=== PATIENT | male | born 1945 | race Caucasian/White ===

== ENCOUNTER → 2016-09-19 | Outpatient (CLI) | payer OTHER ==
[~2016-09-19] MED LIST: ALLO300T2 PO; ATOR-26 PO; CLOP1TAB15 PO; DIPH25TA24 PO; ELQ25 PO; GABA-113 PO; LSNUNK; MULT-506 PO; NITR0.4S UT; OMEG-13 PO; PRAV20TA PO; TRIA37.5 PO; [UNRECOGNIZED DRUG - OTHER]; [UNRECOGNIZED DRUG - OTHER]
[2016-09-19 09:31] LABS: HEMATOCRIT 42.8 % (42-52); MEAN CELL VOLUME 88.6 fL (80-100); MEAN CORPUSCULAR HGB CONC 33.9 g/dl (32-36); MEAN PLATELET VOLUME 11.1 fL (7.4-10.4); PLATELET COUNT 129 K/uL (130-400); RED BLOOD COUNT 4.83 M/uL (4.7-6.1); WHITE BLOOD COUNT 5.25 K/uL (4.8-10.8)
[2016-09-19 09:48] LABS: AST/SGOT 19 U/L (15-37); BLOOD UREA NITROGEN 20 mg/dl (7-18); BUN/CREATININE RATIO 16.3 (10-20); CALCIUM 8.5 mg/dl (8.5-10.1); CARBON DIOXIDE 29 mmol/L (21-32); CHLORIDE 108 mmol/L (98-107); CHOLESTEROL 107 mg/dl (0-200); GLUCOSE 95 mg/dl (70-99); POTASSIUM 3.9 mmol/L (3.5-5.1); SODIUM 144 mmol/L (136-145)
[2016-09-19 09:53] LABS: ALB/GLOB RATIO 1.9 (0.9-2); ALKALINE PHOSPHATASE 114 U/L (45-117); ALT/SGPT 29 U/L (12-78); CHOLESTEROL/HDL RATIO 3.3; HDL CHOLESTEROL 32 mg/dl; LDL CHOLESTEROL CALCULATED 53 mg/dl; TRIGLYCERIDES 110 mg/dl (0-150); VERY LOW DENSITY LIPOPROT CALC 22 mg/dl
[2016-09-19 10:05] LABS: ESTIMATED AVERAGE GLUCOSE 108 mg/dl; HA1C FLAG Normal (Normal)
--- NOTE | 2016-09-24 08:35 | CODING QUERY MEDICAL NECESSITY ---
SUPPORTING DIAGNOSIS NEEDED A supporting diagnosis is required for the test/procedure performed on this patient in order for us to be reimbursed by the patient's insurance. Please provide a supporting diagnosis for the following test/procedure listed below next to the test name along with your signature. *If there is no additional diagnosis for this patient that would support the following test/procedure please document that below next to the test/procedure. Test(s)/Procedure(s) that require a supporting diagnosis: * GLYCATED HEMOGLOBIN DIAGNOSIS: * DOS: 09/19/16 Provider Signature: Date: Thank you Gely Oconnor Health Information Management Once completed, please kindly fax back to [phone] For questions please call [phone]
== END | disposition home or self-care (01) ==
LOC: C.LAB1850 07:24
PROVIDERS: ATTEND Internal Medicine Cardiovascular Disease
DX: I10 Essential (primary) hypertension (principal); R73.09 Other abnormal glucose

== ENCOUNTER → 2017-03-18 | Outpatient (CLI) | payer OTHER ==
[2017-03-18 10:01] LABS: ALT/SGPT 28 U/L (12-78); BLOOD UREA NITROGEN 19 mg/dl (7-18); BUN/CREATININE RATIO 19.2 (10-20); CALCIUM 8.7 mg/dl (8.5-10.1); CARBON DIOXIDE 29 mmol/L (21-32); CHLORIDE 108 mmol/L (98-107); GLUCOSE 93 mg/dl (70-99); POTASSIUM 3.3 mmol/L (3.5-5.1); SODIUM 142 mmol/L (136-145)
[2017-03-18 10:09] LABS: HEMATOCRIT 42.9 % (42-52); MEAN CELL VOLUME 86.8 fL (80-100); MEAN CORPUSCULAR HEMOGLOBIN 29.6 pg (25-34); PLATELET COUNT 135 K/uL (130-400); PLT ESTIMATE DECREASED; RED BLOOD COUNT 4.94 M/uL (4.7-6.1); WHITE BLOOD COUNT 4.65 K/uL (4.8-10.8)
[2017-03-18 10:11] LABS: ALB/GLOB RATIO 1.7 (0.9-2); ALKALINE PHOSPHATASE 113 U/L (45-117); AST/SGOT 23 U/L (15-37)
== END | disposition home or self-care (01) ==
LOC: C.LAB1850 07:55
PROVIDERS: ATTEND Internal Medicine Cardiovascular Disease
DX: I25.10 Atherosclerotic heart disease of native coronary artery without angina pectoris (principal); E78.5 Hyperlipidemia, unspecified; R06.09 Other forms of dyspnea; I48.0 Paroxysmal atrial fibrillation; I42.9 Cardiomyopathy, unspecified

== ENCOUNTER 2019-02-09 11:33 | Observation (INO) ==
[~2019-02-09 11:33] MED LIST changes: -ALLO300T2 PO; -ATOR-26 PO; +CEFAZOLIN 1000MG 1,000 MG/7.5 ML SYR IV SCH; -CLOP1TAB15 PO; -DIPH25TA24 PO; -ELQ25 PO; -GABA-113 PO; +LR 15ML/HR IV SCH; -LSNUNK; -MULT-506 PO; -NITR0.4S UT; -OMEG-13 PO; -PRAV20TA PO; -TRIA37.5 PO; -[UNRECOGNIZED DRUG - OTHER]; -[UNRECOGNIZED DRUG - OTHER]
[2019-02-09] MEDS ORDERED: LIDOCAINE HCL 1% 20 ML VIAL ONE (12:18)
[2019-02-09] MEDS ORDERED: BACITRACIN OINT 0.9 GM PKT ONE (12:18)
[2019-02-09] MEDS ORDERED: BACITRACIN INJ 50,000 UNIT VIAL ONE (12:18)
--- NOTE | 2019-02-09 14:02 | History & Physical Bridge Note ---
Date of Service February 09, 2019 History & Physical Bridge Note I have examined the patient, reviewed the History & Physical and in the interval since the performance of the History & Physical I have noted the following changes of clinical significance: no changes noted. I reviewed the indications, procedure, risks and alternatives of upgrade to biventricular ICD with the patient and he understands and agrees to proceed. Consent obtained. I also discussed conscious sedation with him and he agrees. Consent obtained.
--- NOTE | 2019-02-09 14:04 | Pre Anesthesia Assessment ---
Date of Service February 09, 2019 Pre Sedation Assessment Vital Signs Temp Pulse Resp BP Pulse Ox 02/09/19 12:27 37.2 C 85 20 122/66 98 Cardiovascular RRR, no murmur, no edema Respiratory normal respiratory effort, lungs clear to auscultation Pre-Sedation Airway Assessment Smoking Status: Never smoker Hx Sleep Apnea: No Hx Difficult Intubation: No Short, Thick Neck: No Thyromental Distance: > or= 3.5 Finger Breadths Mallampati Class: II ASA III NPO Status Date of Last Intake of Fluids: 02/08/19 Date of Last Intake of Solid Food: 02/08/19 Procedure Planning Contraindications for Sedation: none Current Medications Reviewed: Yes Notes The planned sedation has been discussed with the patient. Informed Consent was obtained. I have identified the patient, determined the appropriateness of sedation and have assessed the patient immediately prior to the procedure. All medicine(s) and interventions are by my order.
[2019-02-09] MEDS ORDERED: MIDAZOLAM HCL 5 MG/ML 1 ML VIAL ONE (14:11)
[2019-02-09] MEDS ORDERED: fentaNYL citrate 100 MCG/2 ML VIAL ONE (14:11)
[2019-02-09] MEDS ORDERED: ACETAMINOPHEN 325 MG TAB PO PRN (16:38)
[2019-02-09] MEDS ORDERED: KETOROLAC TROMETHAMINE 10 MG TABLET PO PRN (16:38)
--- NOTE | 2019-02-09 16:38 | Operative Report ---
Post Operative Report Pre & Post Diagnosis Operation Date: 02/09/19 13:00 Preoperative diagnosis: ICD at SEE, left bundle branch block (paced), complete heart block, cardiomyopathy Postoperative diagnosis: Same Procedure Operation Date: 02/09/19 13:00 Actual Procedures p ICD Gen Change Multiple - Joesph Kaiser MD Left ventricular lead implant- Joesph Kaiser MD Left subclavian venogram Coronary sinus angiogram Surgeon Joesph Kaiser MD Adult Family Home Program Manager None Estimated Blood Loss 30 Findings Consistent with Post-Op Diagnosis Left subclavian vein was open on venography, however tortuous and difficult to access and passed a lead through but it was successful. Chronic atrial and ventricular lead measurements were excellent and those leads were used Specimens Old ICD, return to [employer] Anesthesia Type Local Complications none Disposition Accompanied Patient To Recovery: No Disposition: PCU Description of Procedure After obtaining informed consent for the procedure, the patient was brought to the laboratory being NPO after midnight. After identification in the laboratory dye was injected the left arm IV site to opacify the left subclavian vein. The subclavian vein was identified and found to be free of obstruction. The patient was prepped and draped in the standard sterile manner. Left subclavian venipuncture was performed by percutaneous technique with some difficulty but no complications, a guidewire was placed through the left subclavian vein into the right atrium but it was tortuous and several wires were required. Ultimately however good access to the right atrium was obtained. A [place] coronary sinus sheath was advanced over the guidewire into the right atrium, loss of the coronary sinus was identified with dye injection. A guidewire was placed into the coronary sinus and a guiding catheter placed into the coronary sinus. Dye was injected through the guiding sheath to opacify the coronary sinus. A good branch was identified and a whisper CS J-wire was advanced into this vessel. A quadripolar coronary sinus lead was advanced over the wire into good distal position. Measurements were obtained and are identified on the data sheet. Diaphragmatic pacing was evaluated. The lead was then attached to the anterior pectoral fascia using 2 sutures of 2-0 silk around the lead collar. The left prepectoral region was anesthetized with 1% lidocaine local anesthetic and the incision was extended along the old implant scar and carried down to the ICD generator. The generator was dissected free of tissue and explanted. A bacitracin-soaked sponge (50,000 units in 50 cc normal saline solution) was placed in the pocket. The ICD was removed from the leads and connected to an external pacing system. Pacing and sensing characteristics were evaluated in both the atrial and ventricular leads as noted on the implant data sheet. A new ICD was attached to the chronic atrial and ventricular leads and the new left ventricular lead and found to be functioning normally. The bacitracin-soaked sponge was removed from the pocket, the ICD was placed in the pocket with the leads coiled beneath it and encased in a Tyrex pouch. The incision was closed with a running double subcutaneous closure of 3-0 Vicryl absorbable suture followed by a running subcuticular skin closure of 4-0 Vicryl absorbable suture. I attest to the content of the Intraoperative Record and any orders documented therein. Any exceptions are noted below.
[2019-02-09] MEDS ORDERED: NITROGLYCERIN SL 0.4 MG/TAB TAB SL PRN (16:40)
--- NOTE | 2019-02-09 16:44 | Post Anesthesia Assessment ---
Date of Service February 09, 2019 Post Sedation Assessment Vital Signs Temp Pulse Resp BP Pulse Ox 02/09/19 12:27 37.2 C 85 20 122/66 98 Recovery Score Activity: Moves 4 extremities Respiration: Deep Breath/Cough Circulation: +/-20% PreAnes Value Consciousness: Fully Awake Oxygen Saturation: > 92% On Room Air Discharge Sedation Level of Care: Fast Track Phase II Post Sedation Plan On clinical assessment, the patient appears to have tolerated the sedation without complications. Patient is recovering as anticipated. Patient will continue to be monitored by nursing and may be discharged when sedation discharge criteria are met per below protocol. Upon Completions of procedure and additional 15 minutes continue every 5 minute vital signs and the P.A.R. score; then discharge to a Phase I or Fast Track to Phase II per the following guidelines: * Discharge Patient to appropriate Phase II area if PAR is 8 or greater or return to pre- procedure baseline. The post - procedure orders will be as directed. * If PAR score is less than 8 or not return to pre-procedure baseline then patient will follow Phase I monitoring till PAR is reached for Phase II. The Phase I may be done in procedure room or may call to secure a Phase I area. * If naloxone or flumazenil are used for reversal, hold in Phase I for continued monitoring from when last reversal dose was given for a minimum of 60 minutes or longer pending the nurse and/or physician discretion of patient condition before discharge to Phase II. Please call the Sedation Physician to re-evaluate and complete post-note for discharge to Phase II area. Do NOT discharge from procedure sedation or Phase 1 until post- sedation evaluation note is complete by procedure /sedation MD Sedation Discharge Instructions to be given to the patient at discharge to home.
[2019-02-09] MEDS: CARVEDILOL 12.5 MG TAB PO SCH (19:52)
[2019-02-09] MEDS: GABAPENTIN 400 MG CAP PO SCH (19:52)
--- NOTE | 2019-02-10 07:52 | XRay Report ---
XR chest 2V routine CLINICAL HISTORY: Pacemaker insertion. COMPARISON STUDY: Chest radiograph August 23, 2009. FINDINGS: Interval placement of a left subclavian pacer is noted. Preexisting leads are noted. A lead now extends through the coronary sinus. Note is made of moderate cardiomegaly without evidence for p ulmonary edema. There is no pneumothorax or pleural effusion. There is suspected underlying emphysema . Nodular densities projecting over the lower lungs likely reflect nipple shadows. IMPRESSION: No pneumothorax following placement of a left subclavian pacer. Electronically signed by: Davide Grant M.D. 02/10/2019 7:51 AM
[2019-02-10] MEDS: CARVEDILOL 12.5 MG TAB PO SCH (08:15)
[2019-02-10] MEDS: GABAPENTIN 400 MG CAP PO SCH (08:16)
[2019-02-10] MEDS ORDERED: ATORVASTATIN 40 MG TAB PO SCH (09:00)
[2019-02-10] MEDS ORDERED: CLOPIDOGREL BISULFATE 75 MG TAB PO SCH (09:00)
[2019-02-10] MEDS ORDERED: ISOSORBIDE MONO EXTENDED REL 60 MG TABCR PO SCH (09:00)
[2019-02-10] MEDS ORDERED: TRIAMTERENE/HCTZ 37.5/25MG CAP PO SCH (09:00)
[2019-02-10] MEDS ORDERED: ALLOPURINOL 300 MG TAB PO SCH (09:00)
[2019-02-10] MEDS ORDERED: LISINOPRIL 10 MG TAB PO SCH (09:00)
[2019-02-10] MEDS ORDERED: MULTIVITAMIN TAB PO SCH (09:00)
--- NOTE | 2019-02-10 09:12 | Cardiology Progress Note ---
Date of Service February 10, 2019 Assessment & Plan (1) History of implantable cardioverter-defibrillator (ICD) placement: He is doing very well post ICD upgrade, the electric cardiogram looks good, the lead is in good position and the x-ray looks good. He is stable for discharge. I have arranged follow-up in 2 days. Subjective He reports an occasional twitching sensation, once when he is going down x-ray and occasional other times. This sounds like diaphragmatic stimulation Patient feels well today, no significant incisional discomfort, no shortness of breath or chest discomfort. He has been up and out of bed and felt well doing that. Physical Exam Physical Exam: Surgical site looks clean and dry, there may be minimal swelling at the ICD site but no significant ecchymosis and no drainage. The dressing was dry and was changed. Results & Data Vital Signs (Past 12 Hours) Vital Signs Temp Pulse Pulse Resp BP BP Pulse Ox 02/10/19 08:13 36.7 C 78 19 95/61 L 97 02/10/19 03:25 36.7 C 67 19 94/58 L 99 02/10/19 00:33 70 02/09/19 23:42 37.0 C 75 19 89/53 L 98 02/09/19 22:00 80 20 113/56 L 98 02/09/19 21:30 88 20 114/77 98 02/09/19 21:00 89 20 108/70 94 Diagnostic Findings Electrocardiogram: Appropriate biventricular pacing this morning, the QRS has narrowed nicely to 128 ms duration. Telemetry: Appropriate ICD function, pacing Pacemaker evaluation: Excellent pacing and sensing characteristics. Left ventricular pacing output dropped to minimize diaphragmatic pacing. Chest x-ray: Good lead position, no pneumothorax
--- NOTE | 2019-02-15 08:31 | Discharge Summary ---
Date of Service February 15, 2019 Admission HPI Per Admitting Provider This is a 73-year-old male with a history of coronary artery disease, prior myocardial infarction, ischemic cardiomyopathy. He had a dual-chamber ICD implanted February 19, 2008, with replacement on December 17, 2012. He has been on appropriate medical therapy and his left ventricular ejection fraction has remained less than 35%. An echocardiogram done July 03, 2018 shows a left ventricular ejection fraction of 20 to 25%. He also has had progressive dyspnea on exertion. His device has reached replacement time and we will therefore upgrade the device to a biventricular unit by placing a left ventricular lead and using the chronic atrial and right ventricular leads if possible. Admission Exam (Per Admitting) Constitutional WD/WN, vitals as above ENMT Mallampati Class: II Respiratory normal respiratory effort, lungs clear to auscultation Cardiovascular RRR, no murmur, no edema Gastrointestinal (Abdomen) normal bowel sounds, soft, nontender, no hepatosplenomegaly Neurologic Grossly unremarkable Discharge Data Procedures Performed Operation Date: 02/09/19 13:00 Actual Procedures p Upgrade of any system to BIV - Joesph Kaiser MD s Venogram, Unilateral - Joesph Kaiser MD Hospital Course (1) History of implantable cardioverter-defibrillator (ICD) placement: Although access was somewhat difficult and the venogram was required, the left subclavian vein was patent and with a little bit of difficulty a guidewire was passed into the right atrium and a lead successfully implanted in good position in a branch of the coronary sinus. He was doing very well post ICD upgrade, the electrocardiogram looked good with significant QRS narrowing, the lead was in good position and the x-ray looked good. He was stable for discharge. I arranged follow-up in 2 days.
== END 2019-02-10 10:00 | disposition home or self-care (01) ==
LOC: 2S 11:33 → EP 11:33

== ENCOUNTER 2020-01-27 14:58 | Inpatient (IN) ==
[2020-01-27] MEDS ORDERED: ASPIRIN CHEW 324 MG PO STA (15:10)
[2020-01-27] MEDS ORDERED: LORazepam 0.5 MG/1 ML VIAL IV STA (15:26)
--- NOTE | 2020-01-27 15:33 | Emergency Department Note ---
History of Present Illness General Chief Complaint: Cardiac Assessment Stated Complaint: CARDIAC ASSESSMENT, REF'D BY WALLY Time Seen by Provider: 01/27/20 15:07 History of Present Illness Provider Complaint: chest pain Onset (ago): hour(s) 2 (2.5) Time: 13:00 Duration: now resolved Pain Location: substernal Pain Radiation: none Current Pain Intensity: 0 Quality: + other (Pressure) Relieved By: + other (Defibrillator going off) Exacerbated By: + nothing Context: no recent illness, no recent surgery, no recent immobilization, no recent travel, no trauma/injury and no history of DVT/PE Associated symptoms: + syncope; no nausea, no vomiting, no diaphoresis, no dyspnea, no sense of impending doom, no palpitations, no fever, no cough and no leg swelling 74-year-old male with a history of coronary artery disease, LAD stent, left circumflex stent, ischemic cardiomyopathy, Medtronic cardioverter/defibrillator, hypertension, dyslipidemia, proximal atrial fibrillation, and paroxysmal V. tach presents emergency department after his defibrillator went off. Patient reports that his defibrillator went off 3 times last 5 days. He states last time he went off was 1 PM today. He states he feels chest pressure before the defibrillator goes off. He states today at 1 PM he began feeling chest pressure, passed out and then the defibrillator went off. He denies any difficulty breathing. He denies any hemoptysis. Patient states he is a patient of [facility] cardiology. Home Medications Home Medications Medication Instructions Recorded Confirmed Type atorvastatin 80 mg tablet 80 mg PO DAILY 01/06/19 01/27/20 History diphenhydramine HCl 25 mg capsule 25 mg PO DAILY PRN cap 01/06/19 01/27/20 History multivitamin 1 tab PO DAILY 01/06/19 01/27/20 History aspirin 81 mg tablet,delayed 81 mg PO DAILY #30 tab 02/24/19 01/27/20 History release potassium chloride 10 mEq 10 meq PO DAILY #90 tab 02/24/19 01/27/20 History tablet,extended release carvedilol 25 mg tablet 25 mg PO BID #60 tab 03/30/19 01/27/20 Rx allopurinol 300 mg tablet 300 mg PO DAILY #30 tab 04/09/19 01/27/20 Rx clopidogrel 75 mg tablet 75 mg PO DAILY #30 tab 04/09/19 01/27/20 Rx isosorbide mononitrate 60 mg 60 mg PO QAM #30 tab 04/09/19 01/27/20 Rx tablet,extended release 24 hr nitroglycerin 0.4 mg sublingual 0.4 mg SL Q5M PRN #25 tab 05/03/19 01/27/20 Rx tablet digoxin 125 mcg (0.125 mg) tablet 125 mcg PO DAILY #90 tab 05/10/19 01/27/20 Rx lisinopril 10 mg tablet 10 mg PO DAILY #90 tab 07/06/19 01/27/20 Rx apixaban 5 mg tablet 5 mg PO BID #60 tab 09/06/19 01/27/20 Rx triamterene 37.5 1 cap PO DAILY #90 cap 10/04/19 01/27/20 Rx mg-hydrochlorothiazide 25 mg capsule gabapentin 400 mg capsule 400 mg PO TID #90 cap 11/17/19 01/27/20 Rx Allergies Allergy/AdvReac Type Severity Reaction Status Date / Time Tetracyclines Allergy Severe Rash; Verified 01/27/20 15:29 Itching Past Med/Surg History Medical History Abnormal CT scan, kidney (Inactive) Atrial fibrillation Chronic anticoagulation (Inactive) Coronary artery disease Dyslipidemia Hematochezia History of myocardial infarction Hypertension ICD (implantable cardioverter-defibrillator) in place (Inactive) Lumbar radiculopathy (Chronic) Pacemaker Palpitation Paroxysmal ventricular tachycardia (Inactive) Surgical History History of coronary artery stent placement History of implantable cardioverter-defibrillator (ICD) placement History of tonsillectomy and adenoidectomy Family History Mother Diabetes Denies family history of Ovarian cancer Prostate cancer Myocardial infarction Breast cancer Colorectal cancer Social History Preferred Language: Thai Communication Ability: Effective Visual Impairment: Limited Hearing Ability: Normal 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 Beliefs That Will Affect Care: None marital status: Current Living Situation: Alone current occupational status: retired Feels Safe at Home: Yes Smoking Status: Unknown if ever smoked Hx Alcohol Use: No Hx Substance Use: No Childhood Exposure to Second-Hand Smoke: No Dental Care, Regularly: No Physical Activity Frequency: Does not Exercise Seatbelt Use: always Sunscreen Use: No Review of Systems A total of 10 systems reviewed and were otherwise negative Physical Exam Vital Signs Vital Signs - 24 hr 01/27/20 15:01 01/27/20 15:24 01/27/20 15:25 Temperature 37.0 C Temperature Source Oral Pulse Rate 84 70 Pulse Rate from SpO2 Sensor 70 Respiratory Rate 20 24 Respiratory Effort / Characteristics Non-Labored Spontaneous Respiratory Depth Normal Respiratory Pattern Regular Blood Pressure 120/71 120/68 Blood Pressure Mean 87 79 Pulse Oximetry 97 97 98 Oxygen Delivery Method Room Air Room Air Room Air Sepsis Recent Fever Within 48 Hours No Sepsis Action Taken by Nursing No Action Required 01/27/20 15:29 01/27/20 15:30 01/27/20 16:00 Temperature Temperature Source Pulse Rate 71 70 74 Pulse Rate from SpO2 Sensor 71 70 74 Respiratory Rate 15 16 24 Respiratory Effort / Characteristics Respiratory Depth Respiratory Pattern Blood Pressure 118/66 Blood Pressure Mean 81 Pulse Oximetry 96 95 93 Oxygen Delivery Method Room Air Room Air Sepsis Recent Fever Within 48 Hours Sepsis Action Taken by Nursing 01/27/20 16:01 01/27/20 16:02 01/27/20 16:30 Temperature Temperature Source Pulse Rate 71 88 71 Pulse Rate from SpO2 Sensor 70 88 70 Respiratory Rate 24 24 20 Respiratory Effort / Characteristics Respiratory Depth Respiratory Pattern Blood Pressure 119/65 117/65 Blood Pressure Mean 89 89 Pulse Oximetry 94 93 97 Oxygen Delivery Method Room Air Room Air Sepsis Recent Fever Within 48 Hours Sepsis Action Taken by Nursing 01/27/20 17:00 01/27/20 17:01 01/27/20 17:02 Temperature Temperature Source Pulse Rate 72 71 70 Pulse Rate from SpO2 Sensor Respiratory Rate 20 18 17 Respiratory Effort / Characteristics Respiratory Depth Respiratory Pattern Blood Pressure 131/58 L Blood Pressure Mean 98 Pulse Oximetry 98 97 Oxygen Delivery Method Room Air Room Air Sepsis Recent Fever Within 48 Hours Sepsis Action Taken by Nursing 01/27/20 17:30 Temperature Temperature Source Pulse Rate 71 Pulse Rate from SpO2 Sensor Respiratory Rate 17 Respiratory Effort / Characteristics Respiratory Depth Respiratory Pattern Blood Pressure 125/69 Blood Pressure Mean 103 Pulse Oximetry 97 Oxygen Delivery Method Room Air Sepsis Recent Fever Within 48 Hours Sepsis Action Taken by Nursing Physical Exam GENERAL: He is oriented to person, place, and time. He appears well-developed and well-nourished. He does not appear distressed. HENT: Exam performed. - Head: Normocephalic and atraumatic. - Right Ear: External ear normal. No mastoid tenderness. - Left Ear: External ear normal. No mastoid tenderness. - Mouth/Throat: The oropharynx is clear and moist. No trismus in the jaw. No dental abscesses or uvula swelling. No oropharyngeal exudate or tonsillar abscesses. EYES: Conjunctivae and EOM are normal. Pupils are equal, round, and reactive to light. Right eye exhibits no discharge. Left eye exhibits no discharge. No scleral icterus. NECK: Normal range of motion. Neck supple. No JVD present. No spinous process tenderness present. No carotid bruit present. No rigidity. No tracheal deviation and normal range of motion present. No Brudzinski's sign and no Kernig's sign noted. CV: Normal rate, regular rhythm, normal heart sounds and intact distal pulses. There is no peripheral edema. Palpable radial pulses bue. PULM/CHEST: Effort normal and breath sounds normal. No respiratory distress. No stridor. He has no wheezes. He has no rales. - Chest Wall: He exhibits no tenderness. ABD: The abdomen is soft. Bowel sounds are normal. He has no distension. No mass is present. There is no tenderness. There is no rebound, no guarding, no Dozier's sign and no tenderness at McBurney's point. Rovsig negative. MUSC/SKEL: Normal range of motion. There is no peripheral edema, tenderness or deformity. LYMPH: No cervical adenopathy. NEURO: He is alert and oriented to person, place, and time. He has normal strength. No cranial nerve deficit or sensory deficit. Coordination and gait normal. GCS eye subscore is 4. GCS verbal subscore is 5. GCS motor subscore is 6. Cerebellar tests wnl. SKIN: Skin is warm and dry. He is not diaphoretic. PSYCH: He has a normal mood and affect. Behavior is normal. Judgment and thought content normal. Course Course 1515: The patient was evaluated in room B2. A complete history and physical exam was performed. Cardiac monitoring: An order was placed for continuous cardiac monitoring. The monitor shows a rate of 80 with paced rhythm 1536: Received a call from Braden from [employer]. The patient did have his defibrillator go off once at 1303 due to V. tach. 1647: Vital signs stable. Labs within normal limits with exception of elevated troponin. I discussed the patient's case with Dr. Borges [facility] cardiology who states to start the patient on amiodarone 400 mg twice daily and to admit him to the hospital service where he will see him. Discussed with Dr. Fields [facility] hospitalist who accepted the admission. Administered Medications Apixaban (Eliquis) 5 mg PO BID BLANCO Stop: 02/26/20 20:59 Last Admin: 01/27/20 21:42 Dose: 5 mg Documented by: [id number] Carvedilol (Coreg) 25 mg PO BID BLANCO Stop: 02/26/20 20:59 Last Admin: 01/27/20 21:42 Dose: 25 mg Documented by: [id number] Gabapentin (Neurontin) 400 mg PO TID BLANCO Stop: 02/26/20 20:59 Last Admin: 01/27/20 21:42 Dose: 400 mg Documented by: [id number] Discontinued Medications Amiodarone HCl (Cordarone) 400 mg PO NOW ONE Stop: 01/27/20 16:45 Last Admin: 01/27/20 16:54 Dose: 400 mg Documented by: [id number] Aspirin (Aspirin) 324 mg PO NOW STA Stop: 01/27/20 15:11 Last Admin: 01/27/20 15:25 Dose: 324 mg Documented by: [id number] Lorazepam (Ativan) 0.5 mg in 1 mls @ 1 mls/min IV NOW STA Stop: 01/27/20 15:27 Last Admin: 01/27/20 15:32 Dose: 1 mls/min Documented by: [id number] Medical Decision Making Laboratory Data Result diagrams: 01/27/20 15:20 01/27/20 15:20 Labs: Lab Results 01/27/20 01/27/20 01/27/20 Range/Units 15:20 15:20 15:20 WBC 4.94 (4.8-10.8) K/uL RBC 4.40 L (4.7-6.1) M/uL Hgb 13.4 L (14.0-18.0) g/dL Hct 40.4 L (42-52) % MCV 91.8 (80-100) fL MCH 30.5 (25-34) pg MCHC 33.2 (32-36) g/dL RDW Std Deviation 49.7 H (36.4-46.3) fL RDW Coeff of Phill 14.8 H (11.5-14.5) % Plt Count 165 (130-400) K/uL MPV 10.1 (7.4-10.4) fL Immature Gran % (Auto) 0.0 % Neut % (Auto) 73.5 % Lymph % (Auto) 18.4 % [place] % (Auto) 8.1 % Eos % (Auto) 0.0 % Baso % (Auto) 0.0 % Neut # (Auto) 3.63 (1.4-6.5) K/uL Lymph # (Auto) 0.91 L (1.2-3.4) K/uL [place] # (Auto) 0.40 (0.11-0.59) K/uL Eos # (Auto) 0.00 (0-0.5) K/uL Baso # (Auto) 0.00 (0-0.2) K/uL Immature Gran # (Auto) 0.00 (0.00-0.02) K/uL PT 11.4 (9.0-12.0) Seconds INR 1.1 (0.9-1.1) APTT 31.0 (21.0-31.0) Seconds PTT Ratio 1.1 Sodium 142 (136-145) mmol/L Potassium 4.0 (3.5-5.1) mmol/L Chloride 110 H (98-107) mmol/L Carbon Dioxide 30 (21-32) mmol/L Anion Gap 2.0 L (3-11) BUN 22 H (7-18) mg/dl Creatinine 1.29 (0.6-1.4) mg/dl Est Cr Clr Drug Dosing 47.7 ml/min Est GFR ( Amer) 63.3 Est GFR (Non-Af Amer) 54.6 BUN/Creatinine Ratio 16.9 (10-20) Glucose 119 H (70-99) mg/dl Calcium 8.6 (8.5-10.1) mg/dl Magnesium 2.0 (1.8-2.4) mg/dl Troponin I 0.069 H* (0-0.045) ng/ml Lipase 106 (73-393) U/L Imaging Data Chest x-ray: Radiologist's impression: XR chest 2V PA/lateral CLINICAL HISTORY: Atypical chest pain COMPARISON STUDY: 02/10/2019 FINDINGS: The heart is borderline enlarged. There is a left subclavian pacer/defibrillator present. There is no failure. There is no focal pulmonary consolidation. There are no pleural effusions. There is a linear band of subsegmental atelectasis/scarring at the left lung base laterally. Bilateral nipple shadows are again visualized. IMPRESSION: No active disease in the chest. ACT 112: Negative or not required by law. Electronically signed by: Harley Ortega M.D. 01/27/2020 3:38 PM Dictated: 01/27/20 1537 Transcribed: 01/27/20 153 ECG Data Additional Comments: Paced rhythm with rate of 79. UT interval 136. QRS 156. QTc 511. No ectopy.] [facility] Narrative 1515: The patient was evaluated in room B2. A complete history and physical exam was performed. Cardiac monitoring: An order was placed for continuous cardiac monitoring. The monitor shows a rate of 80 with paced rhythm 1536: Received a call from Braden from [employer]. The patient did have his defibrillator go off once at 1303 due to V. tach. 1647: Vital signs stable. Labs within normal limits with exception of elevated troponin. I discussed the patient's case with Dr. Jony Mendez cardiology who states to start the patient on amiodarone 400 mg twice daily and to admit him to the hospital service where he will see him. Discussed with Dr. Donnie Mendez hospitalist who accepted the admission. Impression & Plan Paroxysmal ventricular tachycardia, Elevated troponin Discharge Plan Visit Data *Final* Discharge Date/Time: 01/27/20 18:31 Chief Complaint: Cardiac Assessment Stated Complaint: CARDIAC ASSESSMENT, REF'D BY WALLY ED Provider: Braulio Dunham Discharge Problem: Paroxysmal ventricular tachycardia, Elevated troponin Patient Disposition: Admitted As Inpatient Discharge Instructions Interventions: ED Discharge Assessment Last Done: 01/27/20 18:31
[2020-01-27 15:38] LABS: Hematocrit (blood only) 40.4 % (42-52); Hemoglobin 13.4 g/dL (14.0-18.0); Lymphocytes # (auto) 0.91 K/uL (1.2-3.4); Lymphocytes % (auto) 18.4 %; Mean Corpuscular Hemoglobin 30.5 pg (25-34); Mean Corpuscular Hgb Conc 33.2 g/dL (32-36); Mean Corpuscular Volume 91.8 fL (80-100); Mean Platelet Volume 10.1 fL (7.4-10.4); Monocytes % (auto) 8.1 %; Neutrophils # (auto) 3.63 K/uL (1.4-6.5); Neutrophils % (auto) 73.5 %; Platelet Count 165 K/uL (130-400); RDW Coefficient of Variation 14.8 % (11.5-14.5); RDW Standard Deviation 49.7 fL (36.4-46.3); White Blood Count 4.94 K/uL (4.8-10.8)
--- NOTE | 2020-01-27 15:40 | XRay Report ---
XR chest 2V PA/lateral CLINICAL HISTORY: Atypical chest pain COMPARISON STUDY: 02/10/2019 FINDINGS: The heart is borderline enlarged. There is a left subclavian pacer/defibrillator present. T here is no failure. There is no focal pulmonary consolidation. There are no pleural effusions. There is a linear band of subsegmental atelectasis/scarring at the left lung base laterally. Bilateral nipp le shadows are again visualized. IMPRESSION: No active disease in the chest. ACT 112: Negative or not required by law. Electronically signed by: Harley Ortega M.D. 01/27/2020 3:38 PM
[2020-01-27 15:49] LABS: INR 1.1 (0.9-1.1); Partial Thromboplastin Ratio 1.1; Prothrombin Time 11.4 Seconds (9.0-12.0)
[2020-01-27 15:54] LABS: BUN Creatinine Ratio 16.9 (10-20); Calcium 8.6 mg/dl (8.5-10.1); Creatinine Clr Calc Pharmacy 47.7 ml/min; Est GFR (African American) 63.3; Est GFR (Non-African American) 54.6
[2020-01-27 16:10] LABS: Troponin I 0.069 ng/ml (0-0.045)
[2020-01-27] MEDS ORDERED: AMIODARONE 200 MG TAB PO ONE (16:44)
--- NOTE | 2020-01-27 17:33 | Cardiology Consultation ---
Date of Consultation January 27, 2020 Assessment & Plan (1) Paroxysmal ventricular tachycardia: (2) S/P ICD (internal cardiac defibrillator) procedure: (3) Cardiomyopathy: (4) Coronary artery disease: (5) Paroxysmal atrial fibrillation: (6) Elevated troponin: ASSESSMENT/PLAN: 1. Ventricular tachycardia: With reduced LV systolic function and wall motion abnormalities described on echocardiograms, he has a nidus for ventricular arrhythmias. Because he has increased burden recently, would recommend antiarrhythmic therapy in the form of amiodarone. Start amiodarone 400 mg po twice daily. If he has significant ventricular tachycardia burden overnight, would then load with IV amiodarone at that time. Continue carvedilol. Given his loss of consciousness today, recommend that he no longer drive. We discussed the importance of avoiding driving given today's event. Electrophysiology will see him tomorrow. 2. ICD: Formal interrogation will be performed tomorrow by Dr. Hutchins of electrophysiology. 3. Ischemic cardiomyopathy: As reduced LV systolic function which has been well documented. Continue carvedilol. Continue lisinopril. If no contraindications, titrate lisinopril to optimize medical therapy. He appears euvolemic on examination. 4. CAD s/p LAD and Cx PCI: No angina. Continue anti-platelet therapy. From a cardiac perspective, single anti-platelet therapy would be sufficient, especially while on Eliquis. It is not clear why he is both on aspirin and Plavix at this time. Continue high-intensity statin therapy. Continue beta- luis daniel. 5. Paroxysmal atrial fibrillation: On anticoagulation for stroke risk reduction. Can discontinue digoxin while initiating amiodarone. 6. Elevated troponin: Likely secondary to ventricular arrhythmia and ICD shock. He did not present with acute coronary syndrome. He denies any anginal symptoms. Can trend troponin until peak. 7. Disposition: He is being admitted. Patient care discussed with emergency department physician, Dr. Dunham, and admitting hospitalist attending, Dr. Fields. Dr. Hutchins (EP) was notified and he plans on performing formal interrogation in EP evaluation tomorrow. Please call with any other questions or concerns. Highly complex medical issues. Thank you for allowing me to participate in the care of your patient. Please call for any other questions or concerns. Sincerely, Jimbo Borges M.D. History of Present Illness Reason for Consultation: VTach/Vfib and elevated troponin Requesting Physician: Dr. Dunham Attending Physician: Dr. Dunham History of Present Illness Mr. Feliciano is a pleasant 74-year-old gentleman with a history significant for ischemic cardiomyopathy, CAD s/p LAC and Cx PCI, Medtronic Bi V ICD, hypertension, dyslipidemia, paroxysmal atrial fibrillation/flutter, and ventricular tachycardia. He is followed by Dr. Story and Dr. Kaiser () for his cardiology needs. It had been many years since he has received ICD shock until 01/23/2020 when he received ICD shock. He received another 1 on 01/26/2020. He was seen in the cardiology office yesterday by Mr. Haddadeler who has documented that he had ventricular tachycardia on 01/23/2020, 01/24/2020, and 2 episodes yesterday. Two of these episodes were aborted with anti tachycardia pacing, while 2 required ICD shock. Carvedilol was increased from 25 mg twice daily to 25 mg in the morning and 37.5 mg in the evening. He was advised to seek medical attention if he had further episodes. Today, while sitting on his couch, he had an episode of syncope. He apparently called in to the office stating that he had another ICD shock but when I saw him in the ER, he does not recall being shock but rather states that he lost consciousness briefly. Dr. Dunham in the emergency department stated that and interrogation was performed (records were not available on the chart for review) and detected ventricular tachycardia versus ventricular fibrillation with ICD shock earlier today. Mr. Feliciano denies any chest discomfort, shortness of breath, dyspnea with exertion, orthopnea, fevers, chills, or other episodes of syncope. He does recall feeling lightheaded with his other ICD shocks earlier this week. He is concerned that he has received 3 shocks in the last 5 days. He denies bleeding such as melena, hematochezia, or hematuria. His most recent echo reported an ejection fraction of 35% with wall motion abnormalities, most specifically akinesis of the entire inferoposterior wall and adjacent inferoseptum. His echo also reported moderate MR at that time. He has been eating and drinking his usual amounts without any other change in his diet. Review of systems: As above. Review of systems otherwise negative/unremarkable. Family history: No known premature CAD. Social history: He denies tobacco, alcohol, or drug abuse. He is . He lives alone. He has 1 son. He is unaccompanied in his ER room. Allergies Allergy/AdvReac Type Severity Reaction Status Date / Time Tetracyclines Allergy Severe Rash; Verified 01/27/20 15:29 Itching Home Medications Home Medications Medication Instructions Recorded Confirmed Type atorvastatin 80 mg tablet 80 mg PO DAILY 01/06/19 01/27/20 History diphenhydramine HCl 25 mg capsule 25 mg PO DAILY PRN cap 01/06/19 01/27/20 History multivitamin 1 tab PO DAILY 01/06/19 01/27/20 History aspirin 81 mg tablet,delayed 81 mg PO DAILY #30 tab 02/24/19 01/27/20 History release potassium chloride 10 mEq 10 meq PO DAILY #90 tab 02/24/19 01/27/20 History tablet,extended release carvedilol 25 mg tablet 25 mg PO BID #60 tab 03/30/19 01/27/20 Rx allopurinol 300 mg tablet 300 mg PO DAILY #30 tab 04/09/19 01/27/20 Rx clopidogrel 75 mg tablet 75 mg PO DAILY #30 tab 04/09/19 01/27/20 Rx isosorbide mononitrate 60 mg 60 mg PO QAM #30 tab 04/09/19 01/27/20 Rx tablet,extended release 24 hr nitroglycerin 0.4 mg sublingual 0.4 mg SL Q5M PRN #25 tab 05/03/19 01/27/20 Rx tablet digoxin 125 mcg (0.125 mg) tablet 125 mcg PO DAILY #90 tab 05/10/19 01/27/20 Rx lisinopril 10 mg tablet 10 mg PO DAILY #90 tab 07/06/19 01/27/20 Rx apixaban 5 mg tablet 5 mg PO BID #60 tab 09/06/19 01/27/20 Rx triamterene 37.5 1 cap PO DAILY #90 cap 10/04/19 01/27/20 Rx mg-hydrochlorothiazide 25 mg capsule gabapentin 400 mg capsule 400 mg PO TID #90 cap 11/17/19 01/27/20 Rx Patient History Medical History Abnormal CT scan, kidney (Inactive) Atrial fibrillation Chronic anticoagulation (Inactive) Coronary artery disease Dyslipidemia Hematochezia History of myocardial infarction Hypertension ICD (implantable cardioverter-defibrillator) in place (Inactive) Lumbar radiculopathy (Chronic) Pacemaker Palpitation Paroxysmal ventricular tachycardia (Inactive) Surgical History History of coronary artery stent placement History of implantable cardioverter-defibrillator (ICD) placement History of tonsillectomy and adenoidectomy Family History Mother Diabetes Denies family history of Ovarian cancer Prostate cancer Myocardial infarction Breast cancer Colorectal cancer Social History Preferred Language: Bolivian Communication Ability: Effective Visual Impairment: Limited Hearing Ability: Normal Beliefs That Will Affect Care: None marital status: Current Living Situation: Alone current occupational status: retired Feels Safe at Home: Yes Smoking Status: Never smoker Second Hand Exposure: No ; Hx Alcohol Use: No Hx Substance Use: No Childhood Exposure to Second-Hand Smoke: No Dental Care, Regularly: No Physical Activity Frequency: Does not Exercise Seatbelt Use: always Sunscreen Use: No Physical Exam Physical Exam: Gen.: No acute distress. Alert and oriented. HEENT: Anicteric sclera. Neck: No JVD. No bruits. Normal carotid upstrokes bilaterally. Cardiac: PMI was nondisplaced. No ventricular heave. Regular. Normal S1-S2. No murmurs, rubs, or gallops. Pulmonary: Clear to auscultation bilaterally without wheezes, rales, or rhonchi. Abdomen: Soft, nontender, nondistended, with normoactive bowel sounds. No bruits noted. Extremities: 2+ radial pulses bilaterally. 2+ posterior tibialis pulses bilaterally. No edema or cyanosis. No palpable cords. Psychiatric: Affect appears appropriate. Results & Data ([facility]) Vital Signs (Past 12 Hours) Vital Signs Temp Pulse Resp BP Pulse Ox 01/27/20 17:01 71 18 131/58 L 97 01/27/20 17:00 72 20 98 01/27/20 16:30 71 20 117/65 97 01/27/20 16:02 88 24 93 01/27/20 16:01 71 24 119/65 94 06/25/20 16:00 74 24 93 01/27/20 15:30 70 16 118/66 95 01/27/20 15:29 71 15 96 01/27/20 15:25 98 01/27/20 15:24 70 24 120/68 97 01/27/20 15:01 37.0 C 84 20 120/71 97 Laboratory Results Laboratory Results - last 24 hr 01/27/20 01/27/20 01/27/20 15:20 15:20 15:20 WBC 4.94 RBC 4.40 L Hgb 13.4 L Hct 40.4 L MCV 91.8 MCH 30.5 MCHC 33.2 RDW Std Deviation 49.7 H RDW Coeff of Phill 14.8 H Plt Count 165 MPV 10.1 Immature Gran % (Auto) 0.0 Neut % (Auto) 73.5 Lymph % (Auto) 18.4 [place] % (Auto) 8.1 Eos % (Auto) 0.0 Baso % (Auto) 0.0 Neut # (Auto) 3.63 Lymph # (Auto) 0.91 L [place] # (Auto) 0.40 Eos # (Auto) 0.00 Baso # (Auto) 0.00 Immature Gran # (Auto) 0.00 PT 11.4 INR 1.1 APTT 31.0 PTT Ratio 1.1 Sodium 142 Potassium 4.0 Chloride 110 H Carbon Dioxide 30 Anion Gap 2.0 L BUN 22 H Creatinine 1.29 Est Cr Clr Drug Dosing 47.7 Est GFR ( Amer) 63.3 Est GFR (Non-Af Amer) 54.6 BUN/Creatinine Ratio 16.9 Glucose 119 H Calcium 8.6 Magnesium 2.0 Troponin I 0.069 H* Lipase 106 Diagnostic Findings Chest x-ray 01/27/2020: No acute disease in the chest per Radiology. ECG personally reviewed. ECG 01/27/2020: AV pacing at 79 bpm. Echo 07/06/2019: EF 35%. Akinesis of entire inferoposterior wall and adjacent inferoseptum. Moderate MR. Mild TR. PG Care Time/CCT Total # of Minutes Spent Total Time Spent with Patient: Total time spent is greater than 50% in coordination of care (as documented) at patient's floor/unit and/or counseling patient: Coding Level of Care Code 18788 Initial Inpt Care Lvl 3 Diagnoses Paroxysmal ventricular tachycardia I47.2 S/P ICD (internal cardiac defibrillator) procedure Z95.810 Cardiomyopathy I42.9 Coronary artery disease I25.10 Paroxysmal atrial fibrillation I48.0 Elevated troponin R79.89
--- NOTE | 2020-01-27 18:02 | History & Physical Report ---
Date of Service January 27, 2020 Assessment & Plan (1) Paroxysmal ventricular tachycardia: Difib firing x3 over last several days Office interrogation revealed vtach, meds adjusted outpt with repeat firing Pt seen by cardiology in the ED. Plans for d/c digoxin and start amio PO with 400mg BID dosing Dr. Hutchins to see pt in AM for formal interrogation. Monitor (2) Elevated troponin: Likely related to vtach and defib firing Noted at 0.069 in ED, serials pending (3) S/P ICD (internal cardiac defibrillator) procedure: for hx of vtach (4) Paroxysmal atrial fibrillation: continue home meds, eliquis (5) Hypertension: continue home meds (6) Dyslipidemia: continue home meds (7) Coronary artery disease: s/p stents aspirin 81mg/plavix Cardiology is unclear why pt is on triple therapy (8) DVT prophylaxis: Eliquis History of Present Illness Primary Care Provider: Steven Gilliam, DO 74 y/o M c/o defib shocks. Pt states he was shocked on Friday around noon and then again yesterday around 11:30am. He was seen by cardiology with Brandon Frey who adjusted his medications starting last night after interrogation revealed vtach, however he was shocked again today and came to the ED. Pt states he has had a bit more SOB with exertion than usual lately, but otherwise feels fine. Pt denies fever, chest pain, abd pain, n/v/c/d, LE pain or swelling. He has been eating. Pt seen by cardiology in the ED. Plans for d/c digoxin and start amio PO with 400mg BID dosing Dr. Hutchins to see pt in AM for formal interrogation. Allergies Allergy/AdvReac Type Severity Reaction Status Date / Time Tetracyclines Allergy Severe Rash; Verified 01/27/20 15:29 Itching Home Medications Home Medications Medication Instructions Recorded Confirmed Type atorvastatin 80 mg tablet 80 mg PO DAILY 01/06/19 01/27/20 History diphenhydramine HCl 25 mg capsule 25 mg PO DAILY PRN cap 01/06/19 01/27/20 History multivitamin 1 tab PO DAILY 01/06/19 01/27/20 History aspirin 81 mg tablet,delayed 81 mg PO DAILY #30 tab 02/24/19 01/27/20 History release potassium chloride 10 mEq 10 meq PO DAILY #90 tab 02/24/19 01/27/20 History tablet,extended release carvedilol 25 mg tablet 25 mg PO BID #60 tab 03/30/19 01/27/20 Rx allopurinol 300 mg tablet 300 mg PO DAILY #30 tab 04/09/19 01/27/20 Rx clopidogrel 75 mg tablet 75 mg PO DAILY #30 tab 04/09/19 01/27/20 Rx isosorbide mononitrate 60 mg 60 mg PO QAM #30 tab 04/09/19 01/27/20 Rx tablet,extended release 24 hr nitroglycerin 0.4 mg sublingual 0.4 mg SL Q5M PRN #25 tab 05/03/19 01/27/20 Rx tablet digoxin 125 mcg (0.125 mg) tablet 125 mcg PO DAILY #90 tab 05/10/19 01/27/20 Rx lisinopril 10 mg tablet 10 mg PO DAILY #90 tab 07/06/19 01/27/20 Rx apixaban 5 mg tablet 5 mg PO BID #60 tab 09/06/19 01/27/20 Rx triamterene 37.5 1 cap PO DAILY #90 cap 10/04/19 01/27/20 Rx mg-hydrochlorothiazide 25 mg capsule gabapentin 400 mg capsule 400 mg PO TID #90 cap 11/17/19 01/27/20 Rx Past Med/Surg History Medical History Abnormal CT scan, kidney (Inactive) Atrial fibrillation Chronic anticoagulation (Inactive) Coronary artery disease Dyslipidemia Hematochezia History of myocardial infarction Hypertension ICD (implantable cardioverter-defibrillator) in place (Inactive) Lumbar radiculopathy (Chronic) Pacemaker Palpitation Paroxysmal ventricular tachycardia (Inactive) Surgical History History of coronary artery stent placement History of implantable cardioverter-defibrillator (ICD) placement History of tonsillectomy and adenoidectomy Family History Mother Diabetes Denies family history of Ovarian cancer Prostate cancer Myocardial infarction Breast cancer Colorectal cancer Social History Preferred Language: Bol[place]ian Communication Ability: Effective Visual Impairment: Limited Hearing Ability: Normal Beliefs That Will Affect Care: None marital status: Current Living Situation: Alone current occupational status: retired Feels Safe at Home: Yes Smoking Status: Never smoker Second Hand Exposure: No ; Hx Alcohol Use: No Hx Substance Use: No Childhood Exposure to Second-Hand Smoke: No Dental Care, Regularly: No Physical Activity Frequency: Does not Exercise Seatbelt Use: always Sunscreen Use: No Review of Systems Review of Systems: Pertinent positives and negatives reviewed in HPI--all others negative Physical Exam Constitutional: WD/WN, vitals as above Eyes: normal visual nguyen by confrontation and + anicteric sclerae Neck: normal visual inspection and trachea midline Respiratory: normal respiratory effort, lungs clear to auscultation Cardiovascular: Rate/Rhythm: regular rate and regular rhythm Gastrointestinal (Abdomen): Inspection/Auscultation: abdomen not distended Percussion/Palpation: abdomen soft; abdomen nontender Musculoskeletal: Head/Neck/Chest: normocephalic and head atraumatic negative for edema, peripheral pulses intact Skin: no rashes, warm and dry Neurologic: awake; not confused Speech / Cognition: normal speech Psychiatric: A+Ox3, euthymic affect Results & Data Results & Data ([facility]) Vital Signs (Past 12 Hours) Vital Signs Temp Pulse Resp BP Pulse Ox 01/27/20 17:01 71 18 131/58 L 97 01/27/20 17:00 72 20 98 01/27/20 16:30 71 20 117/65 97 01/27/20 16:02 88 24 93 01/27/20 16:01 71 24 119/65 94 01/27/20 16:00 74 24 93 01/27/20 15:30 70 16 118/66 95 01/27/20 15:29 71 15 96 01/27/20 15:25 98 01/27/20 15:24 70 24 120/68 97 01/27/20 15:01 37.0 C 84 20 120/71 97 Diagnostic Findings CXR: neg for acute ECG Additional Comments: PACED Code Status & VTE Plan Code Status Full code VTE Prophylaxis Plan VTE Prophylaxis will be ordered: Yes PG Care Time/CCT Total # of Minutes Spent Total Time Spent with Patient: Total time spent is greater than 50% in coordina tion of care (as documented) at patient's floor/unit and/or counseling patient: Coding Level of Care Code 80152 Initial Inpt Care Lvl 3 Diagnoses Paroxysmal ventricular tachycardia I47.2 Elevated troponin R79.89 S/P ICD (internal cardiac defibrillator) procedure Z95.810 Paroxysmal atrial fibrillation I48.0 Hypertension I10 Dyslipidemia E78.5 Coronary artery disease I25.10 DVT prophylaxis Z29.9
[2020-01-27] MEDS ORDERED: MAGNESIUM HYDROXIDE SUSP 30 ML UDC PO PRN (18:50)
[2020-01-27] MEDS ORDERED: ACETAMINOPHEN 325 MG TAB PO PRN (18:50)
[2020-01-27] MEDS ORDERED: NITROGLYCERIN SL 0.4 MG/TAB TAB SL PRN (18:50)
[2020-01-27] MEDS ORDERED: ONDANSETRON INJ 2 MG/ML 2 ML VIAL IV PRN (18:50)
[2020-01-27] MEDS: carvediloL 25 MG TAB PO SCH (21:42)
[2020-01-27] MEDS: GABAPENTIN 400 MG CAP PO SCH (21:42)
[2020-01-27] MEDS: APIXABAN 5 MG TABLET PO SCH (21:42)
--- NOTE | 2020-01-27 22:23 | Electrocardiogram Report ---
Test Reason : Blood Pressure : / mmHG Vent. Rate : 079 BPM Atrial Rate : 079 BPM P-R Int : 136 ms QRS Dur : 156 ms QT Int : 446 ms P-R-T Axes : 085 268 089 degrees QTc Int : 511 ms AV dual-paced rhythm Biventricular pacemaker detected Abnormal ECG When compared with ECG of 10-FEB-2019 06:53, Vent. rate has increased BY 6 BPM Confirmed by Rudy Borges ([id number]) on 01/27/2020 10:23:19 PM Referred By: Brandon Frey Confirmed By:Rudy Borges
[2020-01-28 05:27] LABS: BUN Creatinine Ratio 21.9 (10-20); Calcium 8.4 mg/dl (8.5-10.1); Creatinine Clr Calc Pharmacy 55.6 ml/min; Est GFR (African American) 69.1; Est GFR (Non-African American) 59.6; Potassium 3.7 mmol/L (3.5-5.1)
[2020-01-28] MEDS: ATORVASTATIN 40 MG TAB PO SCH (08:00)
[2020-01-28] MEDS ORDERED: AMIODARONE 200 MG TAB PO SCH (08:00)
[2020-01-28] MEDS: GABAPENTIN 400 MG CAP PO SCH ×3 (08:00→19:55)
[2020-01-28] MEDS: MULTIVITAMIN TAB PO SCH (08:01)
[2020-01-28] MEDS: lisinopriL 10 MG TAB PO SCH (08:01)
[2020-01-28] MEDS: TRIAMTERENE/HCTZ 37.5/25MG CAP PO SCH (08:01)
[2020-01-28] MEDS: APIXABAN 5 MG TABLET PO SCH ×2 (08:01→19:55)
[2020-01-28] MEDS: ISOSORBIDE MONO EXTENDED REL 60 MG TABCR PO SCH (08:01)
[2020-01-28] MEDS: allopurinoL 300 MG TAB PO SCH (08:01)
[2020-01-28] MEDS: CLOPIDOGREL BISULFATE 75 MG TAB PO SCH (08:01)
[2020-01-28] MEDS: ASPIRIN 81 MG ECTAB PO SCH (08:01)
[2020-01-28] MEDS: carvediloL 25 MG TAB PO SCH ×2 (08:01→19:55)
[2020-01-28] MEDS: POTASSIUM CHLORIDE 10 MEQ TABCR PO SCH (08:03)
[2020-01-28] MEDS ORDERED: STAT IV Infusion **Titration per Protocol STA (09:32)
[2020-01-28] MEDS ORDERED: 0.2 MICRON FILTER SET 1 EA IV ONE (09:32)
[2020-01-28] MEDS ORDERED: AMIODARONE IV BOLUS & DRIP IV STA (09:32)
[2020-01-28] MEDS ORDERED: AMIODARONE / D5W 150 MG/100 ML BAG IV STA (09:37)
[2020-01-28] MEDS ORDERED: AMIODARONE / D5W 360 MG/200 ML BAG IV ONE (10:00)
--- NOTE | 2020-01-28 14:50 | Hospitalist Progress Note ---
Date of Service January 28, 2020 Assessment & Plan (1) Paroxysmal ventricular tachycardia: ICD firing several times prior to admission and then after admission this morning Dr. Hutchins evaluated on 01/27, he started Amiodarone bolus and drip if he still has V tach then we can try Lidocaine ultimate plan will be for Amiodarone PO to prevent V tach from going forward (2) Elevated troponin: Likely related to vtach and defib firing Noted at 0.069 in ED, no further rise no signs of cardiac ischemia, no chest pain (3) S/P ICD (internal cardiac defibrillator) procedure: for hx of vtach (4) Paroxysmal atrial fibrillation: continue Eliquis Digoxin has been STOPPED started on Amiodarone he has pacemaker (5) Hypertension: continue home meds (6) Dyslipidemia: continue home meds (7) Coronary artery disease: s/p stents aspirin 81mg/plavix (8) DVT prophylaxis: Eliquis Admission and Anticipated Discharge Date Admission Date: January 27, 2020 Subjective patient with three runs of V tach this morning, triggered ICD firing evaluated by Dr. Hutchins around 9am, he started Amiodarone IV bolus and drip, no further V tach as of 5 hours later eating well, breathing well, no chest pain admits that he feels weaker reviewed labs, WBC normal, Hb 13.4, BMP with normal Cr and electrolytes d/w Dr. Hutchins, will keep here over the weekend and monitor on amiodarone drip Review of Systems Review of Systems: All systems reviewed & are unremarkable except as noted in HPI & below Constitutional: + weakness Respiratory: no cough and no dyspnea Cardiovascular: no chest pain, no palpitations and no edema Gastrointestinal: no abdominal pain, no nausea, no vomiting, no constipation and no diarrhea/loose stools Physical Exam Constitutional: WD/WN, vitals as above Eyes: PERRL, conjunctivae normal, anicteric sclerae ENMT: external ear and nose normal, oropharynx normal Neck: trachea midline, no thyromegaly Respiratory: normal respiratory effort, lungs clear to auscultation Cardiovascular: RRR, no murmur, no edema (paced at 60) Gastrointestinal (Abdomen): normal bowel sounds, soft, nontender, no hepatosplenomegaly Musculoskeletal: no cyanosis or clubbing, extremities motor strength 5/5 Skin: no rashes, warm and dry Neurologic: patellar DTR's 2+ bilat, sensation intact and PERRL, EOMI, accommodation nl, no face palsy, no dysarthria Psychiatric: A+Ox3, euthymic affect Lymphatic: no cervical or axillary lymphadenopathy Results & Data Results & Data ([facility]) Vital Signs (Past 12 Hours) Vital Signs Temp Pulse Pulse Resp BP BP Pulse Ox 01/28/20 11:08 36.7 C 64 21 111/64 96 01/28/20 10:00 64 20 01/28/20 08:42 71 15 140/94 97 01/28/20 08:01 36.7 C 68 18 121/76 96 01/28/20 06:00 36.8 C 73 16 160/63 H 94 Laboratory Results Laboratory Results - last 24 hr 01/27/20 01/27/20 01/27/20 15:20 15:20 15:20 WBC 4.94 RBC 4.40 L Hgb 13.4 L Hct 40.4 L MCV 91.8 MCH 30.5 MCHC 33.2 RDW Std Deviation 49.7 H RDW Coeff of Phill 14.8 H Plt Count 165 MPV 10.1 Immature Gran % (Auto) 0.0 Neut % (Auto) 73.5 Lymph % (Auto) 18.4 Cocke % (Auto) 8.1 Eos % (Auto) 0.0 Baso % (Auto) 0.0 Neut # (Auto) 3.63 Lymph # (Auto) 0.91 L Cocke # (Auto) 0.40 Eos # (Auto) 0.00 Baso # (Auto) 0.00 Immature Gran # (Auto) 0.00 PT 11.4 INR 1.1 APTT 31.0 PTT Ratio 1.1 Sodium 142 Potassium 4.0 Chloride 110 H Carbon Dioxide 30 Anion Gap 2.0 L BUN 22 H Creatinine 1.29 Est Cr Clr Drug Dosing 47.7 Est GFR ( Amer) 63.3 Est GFR (Non-Af Amer) 54.6 BUN/Creatinine Ratio 16.9 Glucose 119 H Calcium 8.6 Magnesium 2.0 Troponin I 0.069 H* Lipase 106 Nasal Screen MRSA (PCR) 01/27/20 01/27/20 01/28/20 18:45 19:09 00:54 WBC RBC Hgb Hct MCV MCH MCHC RDW Std Deviation RDW Coeff of Phill Plt Count MPV Immature Gran % (Auto) Neut % (Auto) Lymph % (Auto) Cocke % (Auto) Eos % (Auto) Baso % (Auto) Neut # (Auto) Lymph # (Auto) Cocke # (Auto) Eos # (Auto) Baso # (Auto) Immature Gran # (Auto) PT INR APTT PTT Ratio Sodium Potassium Chloride Carbon Dioxide Anion Gap BUN Creatinine Est Cr Clr Drug Dosing Est GFR ( Amer) Est GFR (Non-Af Amer) BUN/Creatinine Ratio Glucose Calcium Magnesium Troponin I 0.078 H* 0.084 H* Lipase Nasal Screen MRSA (PCR) Negative 01/28/20 03:57 WBC RBC Hgb Hct MCV MCH MCHC RDW Std Deviation RDW Coeff of Phill Plt Count MPV Immature Gran % (Auto) Neut % (Auto) Lymph % (Auto) Cocke % (Auto) Eos % (Auto) Baso % (Auto) Neut # (Auto) Lymph # (Auto) Cocke # (Auto) Eos # (Auto) Baso # (Auto) Immature Gran # (Auto) PT INR APTT PTT Ratio Sodium 143 Potassium 3.7 Chloride 111 H Carbon Dioxide 27 Anion Gap 5.0 BUN 26 H Creatinine 1.20 Est Cr Clr Drug Dosing 55.6 Est GFR ( Amer) 69.1 Est GFR (Non-Af Amer) 59.6 BUN/Creatinine Ratio 21.9 H Glucose 98 Calcium 8.4 L Magnesium Troponin I Lipase Nasal Screen MRSA (PCR) Medications Administered Current Inpatient Medications Acetaminophen (Tylenol) 650 mg PO Q4H PRN PRN Reason: Pain or Fever Stop: 02/26/20 18:49 Allopurinol (Zyloprim) 300 mg PO DAILY [facility] Stop: 02/27/20 08:59 Last Admin: 01/28/20 08:01 Dose: 300 mg Documented by: Apixaban (Eliquis) 5 mg PO BID [facility] Stop: 02/26/20 20:59 Last Admin: 01/28/20 08:01 Dose: 5 mg Documented by: Aspirin (Ecotrin Ectab) 81 mg PO DAILY [facility] Stop: 02/27/20 08:59 Last Admin: 01/28/20 08:01 Dose: 81 mg Documented by: Atorvastatin Calcium (Lipitor) 80 mg PO DAILY [facility] Stop: 02/27/20 08:59 Last Admin: 01/28/20 08:00 Dose: 80 mg Documented by: Carvedilol (Coreg) 25 mg PO BID [facility] Stop: 02/26/20 20:59 Last Admin: 01/28/20 08:01 Dose: 25 mg Documented by: Clopidogrel Bisulfate (Plavix) 75 mg PO DAILY [facility] Stop: 02/27/20 08:59 Last Admin: 01/28/20 08:01 Dose: 75 mg Documented by: Diphenhydramine HCl (Benadryl Capsule) 25 mg PO DAILY PRN PRN Reason: nausea Stop: 02/26/20 18:49 Gabapentin (Neurontin) 400 mg PO TID [facility] Stop: 02/26/20 20:59 Last Admin: 01/28/20 14:01 Dose: 400 mg Documented by: Amiodarone HCl/Dextrose (Nexterone / D5w) 360 mg in 200 mls @ 33.333 mls/hr IV ONE ONE Stop: 01/28/20 15:59 Last Admin: 01/28/20 09:52 Dose: 33.3 mls/hr Documented by: Amiodarone HCl/Dextrose (Nexterone / D5w) 360 mg in 200 mls @ 16.667 mls/hr IV .Q12H [facility] Stop: 02/27/20 15:59 Isosorbide Mononitrate (Imdur Extended Rel) 60 mg PO QAM [facility] Stop: 02/27/20 08:59 Last Admin: 01/28/20 08:01 Dose: 60 mg Documented by: Lisinopril (Zestril) 10 mg PO DAILY [facility] Stop: 02/27/20 08:59 Last Admin: 01/28/20 08:01 Dose: 10 mg Documented by: Magnesium Hydroxide (Milk Of Magnesia) 30 ml PO Q12H PRN PRN Reason: Constipation Stop: 02/26/20 18:49 Multivitamins (Multivitamin Tab) 1 tab PO DAILY [facility] Stop: 02/27/20 08:59 Last Admin: 01/28/20 08:01 Dose: 1 tab Documented by: Nitroglycerin (Nitrostat) 0.4 mg SL Q5M PRN PRN Reason: chest pain Stop: 02/26/20 18:49 Ondansetron HCl (Zofran) 4 mg IV Q6H PRN PRN Reason: Nausea Stop: 02/26/20 18:49 Potassium Chloride (Klor-Con M10) 10 meq PO DAILY [facility] Stop: 02/27/20 08:59 Last Admin: 01/28/20 08:03 Dose: 10 meq Documented by: Triamterene/HCTZ (Dyazide 37.5/25mg) 1 cap PO DAILY [facility] Stop: 02/27/20 08:59 Last Admin: 01/28/20 08:01 Dose: 1 cap Documented by: PG Care Time/CCT Total # of Minutes Spent Total Time Spent with Patient: Total time spent is greater than 50% in coordination of care (as documented) at patient's floor/unit and/or counseling patient: Coding Level of Care Code 87742 Subseq Hosp Care Lvl 2 Diagnoses Paroxysmal ventricular tachycardia I47.2 Elevated troponin R79.89 S/P ICD (internal cardiac defibrillator) procedure Z95.810 Paroxysmal atrial fibrillation I48.0 Hypertension I10 Dyslipidemia E78.5 Coronary artery disease I25.10 DVT prophylaxis Z29.9
[2020-01-28] MEDS: AMIODARONE / D5W 360 MG/200 ML BAG IV SCH (15:49)
[2020-01-29] MEDS: AMIODARONE / D5W 360 MG/200 ML BAG IV SCH (02:50)
[2020-01-29 07:55] LABS: Calcium 8.6 mg/dl (8.5-10.1); Creatinine Clr Calc Pharmacy 64.7 ml/min; Est GFR (African American) 83.1; Est GFR (Non-African American) 71.7; Potassium 3.8 mmol/L (3.5-5.1)
[2020-01-29] MEDS: TRIAMTERENE/HCTZ 37.5/25MG CAP PO SCH (07:55)
[2020-01-29] MEDS: GABAPENTIN 400 MG CAP PO SCH ×3 (07:55→20:44)
[2020-01-29] MEDS: ATORVASTATIN 40 MG TAB PO SCH (07:56)
[2020-01-29] MEDS: lisinopriL 10 MG TAB PO SCH (07:56)
[2020-01-29] MEDS: ASPIRIN 81 MG ECTAB PO SCH (07:56)
[2020-01-29] MEDS: CLOPIDOGREL BISULFATE 75 MG TAB PO SCH (07:56)
[2020-01-29] MEDS: carvediloL 25 MG TAB PO SCH ×2 (07:56→20:44)
[2020-01-29] MEDS: APIXABAN 5 MG TABLET PO SCH ×2 (07:56→20:44)
[2020-01-29] MEDS: MULTIVITAMIN TAB PO SCH (07:56)
[2020-01-29] MEDS: ISOSORBIDE MONO EXTENDED REL 60 MG TABCR PO SCH (07:56)
[2020-01-29] MEDS: allopurinoL 300 MG TAB PO SCH (07:56)
[2020-01-29] MEDS: POTASSIUM CHLORIDE 10 MEQ TABCR PO SCH (07:57)
--- NOTE | 2020-01-29 10:24 | Cardiology Progress Note ---
Date of Service January 28, 2020 Assessment & Plan (1) Paroxysmal ventricular tachycardia: Will start amiodarone infusion. This is ineffective we need to consider the addition of lidocaine. More aggressive interventions would include general anesthesia or transfer for urgent ablation. (2) Cardiomyopathy: He is not appear to have any evidence of decompensation. We can continue his usual outpatient medical regimen which includes carvedilol, lisinopril and Maxzide (3) Coronary artery disease: No current symptoms suggestive of an acute coronary syndrome. Will continue triple therapy with apixaban, aspirin and Plavix. Continue beta blockade and high-dose atorvastatin. Continue isosorbide mononitrate (4) Elevated troponin: Very minimal elevations. Not indicative of an acute coronary syndrome. Admission and Anticipated Discharge Date Admission Date: January 27, 2020 Subjective This morning the patient was very tearful regarding the events of early this morning. He is not complaining currently of any pain or breathing difficulty. Review of Systems Review of Systems: Per HPI Physical Exam Physical Exam: Gen.: Tearful. Oriented. Answer questions appropriately. HEENT: Anicteric sclera. Cardiac: PMI was nondisplaced. No ventricular heave. Regular. Normal S1-S2. No murmurs, rubs, or gallops. Pulmonary: Clear to auscultation bilaterally without wheezes, rales, or rhonchi. Abdomen: Soft, nontender, nondistended, with normoactive bowel sounds. No bruits noted. Extremities: 2+ radial pulses bilaterally. 2+ posterior tibialis pulses bilaterally. No edema or cyanosis. Psychiatric: Affect appears appropriate. Results & Data ([facility]) Vital Signs (Past 12 Hours) Vital Signs Temp Pulse Pulse Resp BP BP Pulse Ox 01/28/20 08:42 71 15 140/94 97 01/28/20 08:01 36.7 C 68 18 121/76 96 01/28/20 06:00 36.8 C 73 16 160/63 H 94 01/27/20 23:09 36.8 C 90 16 112/51 L 95 01/27/20 23:00 90 18 01/27/20 22:55 70 16 112/51 L 01/27/20 22:00 68 15 Diagnostic Findings I performed a device interrogation of his biventricular ICD. Normal function. ECG Additional Comments: Reviewed telemetry reveals for episodes of ventricular tachycardia. Two were effectively treated with ATP. Two were treated with ATP which then degenerated into a more rapid arrhythmia requiring cardioversion. PG Care Time/CCT Total # of Minutes Spent Total Time Spent with Patient: Total time spent is greater than 50% in coordination of care (as documented) at patient's floor/unit and/or counseling patient: Coding Level of Care Code 40087 Subseq Hosp Care Lvl 3 Diagnoses Paroxysmal ventricular tachycardia I47.2 Cardiomyopathy I42.9 Coronary artery disease I25.10 Elevated troponin R79.89
--- NOTE | 2020-01-29 10:25 | Cardiology Progress Note ---
Date of Service January 29, 2020 Assessment & Plan (1) Paroxysmal ventricular tachycardia: No episodes in the past 24 hours. Will continue the amiodarone infusion until this afternoon at which point we will resume his oral dosing. (2) Cardiomyopathy: He does not appear to have any evidence of decompensation. We can continue his usual outpatient medical regimen which includes carvedilol, lisinopril and Maxzide (3) Coronary artery disease: No current symptoms suggestive of an acute coronary syndrome. Will continue triple therapy with apixaban, aspirin and Plavix. Continue beta blockade and high-dose atorvastatin. Continue isosorbide mononitrate (4) Elevated troponin: Very minimal elevations. Not indicative of an acute coronary syndrome. Admission and Anticipated Discharge Date Admission Date: January 27, 2020 Subjective The patient had no specific complaints this morning. He was understandably anxious about recurrent events. He denies breathing difficulty. He reports being ambulatory around the room and having a few bowel movements. Review of Systems Review of Systems: Per HPI Physical Exam Physical Exam: Gen.: Oriented. Answer questions appropriately. HEENT: Anicteric sclera. Cardiac: PMI was nondisplaced. No ventricular heave. Regular. Normal S1-S2. No murmurs, rubs, or gallops. Pulmonary: Clear to auscultation bilaterally without wheezes, rales, or rhonchi. Abdomen: Soft, nontender, nondistended, with normoactive bowel sounds. No bruits noted. Extremities: 2+ radial pulses bilaterally. 2+ posterior tibialis pulses bilaterally. No edema or cyanosis. Psychiatric: Affect appears appropriate. Results & Data ([facility]) Vital Signs (Past 12 Hours) Vital Signs Temp Pulse Pulse Resp BP BP Pulse Ox 01/29/20 07:40 36.6 C 60 17 101/54 L 97 01/29/20 05:42 36.6 C 61 23 103/63 94 01/29/20 04:00 60 13 01/29/20 03:00 62 16 01/29/20 02:00 61 10 L 01/29/20 01:00 61 14 01/29/20 00:00 82 24 01/28/20 23:07 36.7 C 61 20 103/63 96 01/28/20 23:00 65 16 01/28/20 22:56 69 20 103/63 Laboratory Results Abnormal Lab Results 01/29/20 07:26 Sodium 141 Potassium 3.8 Chloride 109 H Carbon Dioxide 25 Anion Gap 7.0 BUN 20 H Creatinine 1.03 Est Cr Clr Drug Dosing 64.7 Est GFR ( Amer) 83.1 Est GFR (Non-Af Amer) 71.7 BUN/Creatinine Ratio 19.0 Glucose 115 H Calcium 8.6 ECG Additional Comments: I reviewed his telemetry did not reveal any arrhythmias in the past 24 hours. PG Care Time/CCT Total # of Minutes Spent Total Time Spent with Patient: Total time spent is greater than 50% in coordination of care (as documented) at patient's floor/unit and/or counseling patient: Coding Level of Care Code 83336 Subseq Hosp Care Lvl 3 Diagnoses Paroxysmal ventricular tachycardia I47.2 Cardiomyopathy I42.9 Coronary artery disease I25.10 Elevated troponin R79.89
[2020-01-29] MEDS ORDERED: POTASSIUM CHLORIDE 10 MEQ TABCR PO ONE (10:45)
--- NOTE | 2020-01-29 13:54 | Hospitalist Progress Note ---
Date of Service January 29, 2020 Assessment & Plan (1) Paroxysmal ventricular tachycardia: ICD firing several times prior to admission and then after admission on 01/27 Dr. Hutchins evaluated on 01/27, he started Amiodarone bolus and drip no further V tach for 24 hours plan to change to PO Amiodarone this afternoon (2) Elevated troponin: Likely related to vtach and defib firing Noted at 0.069 in ED, no further rise no signs of cardiac ischemia, no chest pain (3) S/P ICD (internal cardiac defibrillator) procedure: for hx of vtach (4) Paroxysmal atrial fibrillation: continue Eliquis Digoxin has been STOPPED started on Amiodarone he has pacemaker (5) Hypertension: continue home meds (6) Dyslipidemia: continue home meds (7) Coronary artery disease: s/p stents aspirin 81mg/plavix (8) DVT prophylaxis: Eliquis Admission and Anticipated Discharge Date Admission Date: January 27, 2020 Subjective patient doing well, no V tach for 24 hours on amiodarone drip his appetite is not great, he is trying to eat more no chest pain, no palpitations, no dyspnea, no weakness reviewed labs, electrolytes normal, Cr normal discussed with Dr. Hutchins, will switch to PO Amiodarone this afternoon and continue to observe Review of Systems Review of Systems: All systems reviewed & are unremarkable except as noted in HPI & below Physical Exam Constitutional: WD/WN, vitals as above Eyes: PERRL, conjunctivae normal, anicteric sclerae ENMT: external ear and nose normal, oropharynx normal Neck: trachea midline, no thyromegaly Respiratory: normal respiratory effort, lungs clear to auscultation Cardiovascular: RRR, no murmur, no edema (paced at 60) Gastrointestinal (Abdomen): normal bowel sounds, soft, nontender, no hepatosplenomegaly Musculoskeletal: no cyanosis or clubbing, extremities motor strength 5/5 Skin: no rashes, warm and dry Neurologic: patellar DTR's 2+ bilat, sensation intact and PERRL, EOMI, accommodation nl, no face palsy, no dysarthria Psychiatric: A+Ox3, euthymic affect Lymphatic: no cervical or axillary lymphadenopathy Results & Data Results & Data ([facility]) Vital Signs (Past 12 Hours) Vital Signs Temp Pulse Pulse Resp BP Pulse Ox 01/29/20 11:42 36.6 C 70 22 93/52 L 95 01/29/20 07:40 36.6 C 60 17 101/54 L 97 01/29/20 05:42 36.6 C 61 23 103/63 94 01/29/20 04:00 60 13 01/29/20 03:00 62 16 01/29/20 02:00 61 10 L Laboratory Results Laboratory Results - last 24 hr 01/29/20 07:26 Sodium 141 Potassium 3.8 Chloride 109 H Carbon Dioxide 25 Anion Gap 7.0 BUN 20 H Creatinine 1.03 Est Cr Clr Drug Dosing 64.7 Est GFR ( Amer) 83.1 Est GFR (Non-Af Amer) 71.7 BUN/Creatinine Ratio 19.0 Glucose 115 H Calcium 8.6 Medications Administered Current Inpatient Medications Acetaminophen (Tylenol) 650 mg PO Q4H PRN PRN Reason: Pain or Fever Stop: 02/26/20 18:49 Allopurinol (Zyloprim) 300 mg PO DAILY [facility] Stop: 02/27/20 08:59 Last Admin: 01/29/20 07:56 Dose: 300 mg Documented by: Amiodarone HCl (Cordarone) 400 mg PO BIDM [facility] Stop: 02/28/20 16:59 Apixaban (Eliquis) 5 mg PO BID [facility] Stop: 02/26/20 20:59 Last Admin: 01/29/20 07:56 Dose: 5 mg Documented by: Aspirin (Ecotrin Ectab) 81 mg PO DAILY [facility] Stop: 02/27/20 08:59 Last Admin: 01/29/20 07:56 Dose: 81 mg Documented by: Atorvastatin Calcium (Lipitor) 80 mg PO DAILY [facility] Stop: 02/27/20 08:59 Last Admin: 01/29/20 07:56 Dose: 80 mg Documented by: Carvedilol (Coreg) 25 mg PO BID [facility] Stop: 02/26/20 20:59 Last Admin: 01/29/20 07:56 Dose: 25 mg Documented by: Clopidogrel Bisulfate (Plavix) 75 mg PO DAILY [facility] Stop: 02/27/20 08:59 Last Admin: 01/29/20 07:56 Dose: 75 mg Documented by: Diphenhydramine HCl (Benadryl Capsule) 25 mg PO DAILY PRN PRN Reason: nausea Stop: 02/26/20 18:49 Gabapentin (Neurontin) 400 mg PO TID [facility] Stop: 02/26/20 20:59 Last Admin: 01/29/20 07:55 Dose: 400 mg Documented by: Amiodarone HCl/Dextrose (Nexterone / D5w) 360 mg in 200 mls @ 16.667 mls/hr IV .Q12H [facility] Stop: 01/29/20 15:59 Last Infusion: 01/29/20 07:09 Dose: 0.5 mg/min, 16.7 mls/hr Documented by: Isosorbide Mononitrate (Imdur Extended Rel) 60 mg PO QAM [facility] Stop: 02/27/20 08:59 Last Admin: 01/29/20 07:56 Dose: 60 mg Documented by: Lisinopril (Zestril) 10 mg PO DAILY [facility] Stop: 02/27/20 08:59 Last Admin: 01/29/20 07:56 Dose: 10 mg Documented by: Magnesium Hydroxide (Milk Of Magnesia) 30 ml PO Q12H PRN PRN Reason: Constipation Stop: 02/26/20 18:49 Multivitamins (Multivitamin Tab) 1 tab PO DAILY [facility] Stop: 02/27/20 08:59 Last Admin: 01/29/20 07:56 Dose: 1 tab Documented by: Nitroglycerin (Nitrostat) 0.4 mg SL Q5M PRN PRN Reason: chest pain Stop: 02/26/20 18:49 Ondansetron HCl (Zofran) 4 mg IV Q6H PRN PRN Reason: Nausea Stop: 02/26/20 18:49 Potassium Chloride (Klor-Con M10) 10 meq PO DAILY [facility] Stop: 02/27/20 08:59 Last Admin: 01/29/20 07:57 Dose: 10 meq Documented by: Triamterene/HCTZ (Dyazide 37.5/25mg) 1 cap PO DAILY [facility] Stop: 02/27/20 08:59 Last Admin: 01/29/20 07:55 Dose: 1 cap Documented by: PG Care Time/CCT Total # of Minutes Spent Total Time Spent with Patient: Total time spent is greater than 50% in coordination of care (as documented) at patient's floor/unit and/or counseling patient: Coding Level of Care Code 56974 Subseq Hosp Care Lvl 2 Diagnoses Paroxysmal ventricular tachycardia I47.2 Elevated troponin R79.89 S/P ICD (internal cardiac defibrillator) procedure Z95.810 Paroxysmal atrial fibrillation I48.0 Hypertension I10 Dyslipidemia E78.5 Coronary artery disease I25.10 DVT prophylaxis Z29.9
[2020-01-29] MEDS: AMIODARONE 200 MG TAB PO SCH (15:08)
[2020-01-30 07:57] LABS: BUN Creatinine Ratio 21.6 (10-20); Creatinine Clr Calc Pharmacy 62.1 ml/min; Est GFR (African American) 87.2; Est GFR (Non-African American) 75.2; Potassium 3.7 mmol/L (3.5-5.1)
[2020-01-30] MEDS: carvediloL 25 MG TAB PO SCH (08:06)
[2020-01-30] MEDS: APIXABAN 5 MG TABLET PO SCH (08:06)
[2020-01-30] MEDS: GABAPENTIN 400 MG CAP PO SCH (08:06)
[2020-01-30] MEDS: lisinopriL 10 MG TAB PO SCH (08:07)
[2020-01-30] MEDS: ISOSORBIDE MONO EXTENDED REL 60 MG TABCR PO SCH (08:07)
[2020-01-30] MEDS: allopurinoL 300 MG TAB PO SCH (08:07)
[2020-01-30] MEDS: CLOPIDOGREL BISULFATE 75 MG TAB PO SCH (08:07)
[2020-01-30] MEDS: TRIAMTERENE/HCTZ 37.5/25MG CAP PO SCH (08:07)
[2020-01-30] MEDS: AMIODARONE 200 MG TAB PO SCH (08:08)
[2020-01-30] MEDS: ATORVASTATIN 40 MG TAB PO SCH (08:08)
[2020-01-30] MEDS: ASPIRIN 81 MG ECTAB PO SCH (08:08)
[2020-01-30] MEDS: MULTIVITAMIN TAB PO SCH (08:08)
--- NOTE | 2020-01-30 09:23 | Discharge Summary ---
Date of Service January 30, 2020 Admission HPI Per Admitting Provider 74 y/o M c/o defib shocks. Pt states he was shocked on Friday around noon and then again yesterday around 11:30am. He was seen by cardiology with Brandon Frey who adjusted his medications starting last night after interrogation revealed vtach, however he was shocked again today and came to the ED. Pt states he has had a bit more SOB with exertion than usual lately, but otherwise feels fine. Pt denies fever, chest pain, abd pain, n/v/c/d, LE pain or swelling. He has been eating. Pt seen by cardiology in the ED. Plans for d/c digoxin and start amio PO with 400mg BID dosing Dr. Hutchins to see pt in AM for formal interrogation. Principal Diagnosis Paroxysmal ventricular tachycardia Discharge Exam Constitutional WD/WN, vitals as above Eyes PERRL, conjunctivae normal, anicteric sclerae ENMT external ear and nose normal, oropharynx normal Neck trachea midline, no thyromegaly Respiratory normal respiratory effort, lungs clear to auscultation Cardiovascular RRR, no murmur, no edema (paced at 60) Gastrointestinal (Abdomen) normal bowel sounds, soft, nontender, no hepatosplenomegaly Musculoskeletal no cyanosis or clubbing, extremities motor strength 5/5 Skin no rashes, warm and dry Neurologic patellar DTR's 2+ bilat, sensation intact and PERRL, EOMI, accommodation nl, no face palsy, no dysarthria Psychiatric A+Ox3, euthymic affect Lymphatic no cervical or axillary lymphadenopathy Discharge Data Allergies Allergy/AdvReac Type Severity Reaction Status Date / Time Tetracyclines Allergy Severe Rash; Verified 01/27/20 15:29 Itching Consultations 01/27/20 16:44 ED Decision to Admit Stat 01/27/20 16:45 Consult Cardiology ONCE 01/27/20 18:50 Consult Cardiology Routine Hospital Course (1) Paroxysmal ventricular tachycardia: ICD firing several times prior to admission and then after admission on Dr. Hutchins evaluated on 01/27, he started Amiodarone bolus and drip no further V tach for 48 hours changed to Amiodarone 400mg BID on 01/[address] Hutchins, will continue Amiodarone 400mg BID x 1 week then 400mg daily patient should not drive due to losing consciousness with shocks, wait until he sees cardiology in follow up (2) Elevated troponin: Likely related to vtach and defib firing Noted at 0.069 in ED, no further rise no signs of cardiac ischemia, no chest pain (3) S/P ICD (internal cardiac defibrillator) procedure: for hx of vtach (4) Paroxysmal atrial fibrillation: continue Eliquis Digoxin has been STOPPED started on Amiodarone he has pacemaker (5) Hypertension: continue home meds (6) Dyslipidemia: continue home meds (7) Coronary artery disease: s/p stents aspirin 81mg/plavix (8) DVT prophylaxis: Eliquis Total Time Total Time Spent Total Time Spent (In Minutes): 32 minutes Total Time Includes: Examination of the Patient, Discharge Planning, Medication Reconciliation and Communication With Other Providers (Dr. Hutchins) Discharge Plan Discharge Items Patient Disposition: Home - Self-Care Reason For Visit: VTACH Discharge Diagnosis: Intermittent Ventricular tachycardia Condition on Discharge: Good Goals: continue on Amiodarone 400mg BID for one week then 400mg daily follow up with cardiology Activity: Resume your previous activity Driving/Machine Use: no driving due to Vtach and loss of consciousness Weightbearing: Full weightbearing Non-emergency contact: Primary Care Provider and Customer Retention Representative Call non-emergency contact if: you have any medication questions and your symptoms worsen Follow-up/Referrals: Rudy Borges MD [Physician] - (2-3 weeks) Steven Gilliam DO [Primary Care Provider] - (one week) Diet: Heart Healthy Addtl Attending Provider Instructions: Medications: - AMIODARONE: 400mg twice a day for one week then 400mg daily to prevent v entricular tachycardia - DIGOXIN: STOP taking this medication Paroxysmal ventricular tachycardia, causing ICD to fire, loss of consciousness treated with Amiodarone IV which successfully stopped ventricular tachycardia cardiology recommends taking Amiodarone 400mg twice a day for one week then reduce to 400mg daily follow up with cardiology Pending Studies at Discharge: No Stand-Alone Forms: My [facility], Smoking Cessation Medications and DC Order Prescriptions: New amiodarone 200 mg Tablet 400 mg PO BIDM 30 Days Qty: 120 RF: 1 Continued atorvastatin [Lipitor] 80 mg tablet 80 mg PO DAILY RF: 0 diphenhydramine HCl [Benadryl] 25 mg capsule 25 mg PO DAILY PRN (Reason: nausea) RF: 0 multivitamin tablet 1 tab PO DAILY RF: 0 carvedilol 25 mg tablet 25 mg PO BID Qty: 60 RF: 11 clopidogrel [Plavix] 75 mg tablet 75 mg PO DAILY Qty: 30 RF: 11 allopurinol [Zyloprim] 300 mg tablet 300 mg PO DAILY Qty: 30 RF: 11 isosorbide mononitrate 60 mg tablet extended release 24 hr 60 mg PO QAM Qty: 30 RF: 11 nitroglycerin [Nitrostat] 0.4 mg tablet, sublingual 0.4 mg SL Q5M PRN (Reason: chest pain) Qty: 25 RF: 5 lisinopril 10 mg tablet 10 mg PO DAILY Qty: 90 RF: 3 triamterene-hydrochlorothiazid [Dyazide] 37.5-25 mg capsule 1 cap PO DAILY Qty: 90 RF: 3 gabapentin 400 mg capsule 400 mg PO TID Qty: 90 RF: 5 aspirin 81 mg tablet,delayed release (DR/EC) 81 mg PO DAILY Qty: 30 RF: 0 potassium chloride 10 mEq tablet extended release 10 meq PO DAILY Qty: 90 RF: 0 Eliquis 5 mg tablet 5 mg PO BID Qty: 60 RF: 11 Discontinued digoxin 125 mcg (0.125 mg) tablet 125 mcg PO DAILY Qty: 90 RF: 3 Discharge Orders: Discharge Order (Routine); Ordered 01/30/20 Ordered By: Mikal Mayo/Other Patient Handouts: Amiodarone tablets Admission Data Admit Date/Time: 01/27/20 17:52 Attending Provider: Mikal Ortiz Admit Provider: Estella Fields Primary Care Provider: Steven Gilliam. Other Providers: Rudy Borges ; Estella Fields Coding Level of Care Code D/C Day Management >30 mins Diagnoses Paroxysmal ventricular tachycardia I47.2 Elevated troponin R79.89 S/P ICD (internal cardiac defibrillator) procedure Z95.810 Paroxysmal atrial fibrillation I48.0 Hypertension I10 Dyslipidemia E78.5 Coronary artery disease I25.10 DVT prophylaxis Z29.9
[2020-01-30] MEDS: POTASSIUM CHLORIDE 10 MEQ TABCR PO SCH (09:45)
--- NOTE | 2020-01-30 11:35 | Cardiology Progress Note ---
Date of Service January 30, 2020 Assessment & Plan (1) Paroxysmal ventricular tachycardia: No episodes in the past 48 hours. Currently his chance of recurrence is high. However, I think it is safe for him to leave the hospital. I will continue him on his amiodarone 400 milligrams twice daily for another week and then reduce it to 400 milligrams daily. I encouraged him to activate his remote monitoring from home so that we can see if there are any additional episodes of VT possibly treated exclusively with ATP. He should continue his higher dose of carvedilol, 25 milligrams twice daily. He should follow up in our clinic in the next week or 2 I will order him an outpatient thyroid panel now that he is on amiodarone. (2) Cardiomyopathy: He does not appear to have any evidence of decompensation. We can continue his usual outpatient medical regimen which includes carvedilol, lisinopril and Maxzide (3) Coronary artery disease: No current symptoms suggestive of an acute coronary syndrome. Will continue triple therapy with apixaban, aspirin and Plavix. Continue beta blockade and high-dose atorvastatin. Continue isosorbide mononitrate (4) Elevated troponin: Admission and Anticipated Discharge Date Admission Date: January 27, 2020 Subjective He was in his appears this morning. He was very anxious for discharge. He has been ambulatory without symptoms. Review of Systems Review of Systems: Per HPI Physical Exam Physical Exam: The patient is alert and oriented. Mood and affect appeared normal. He answered all questions appropriately. HEENT: Pupils are equal and reactive to light and accommodation. Extraocular movements are intact. The sclerae are anicteric. Edentulous. Neuro: Cranial nerves intact Neck: Patient's neck is supple. Extremities: There was no evidence of hypoperfusion. There is no cyanosis or clubbing. There is no edema. Skin: I did not appreciate any rashes on examination today. Results & Data ([facility]) Vital Signs (Past 12 Hours) Vital Signs Temp Pulse Pulse Resp BP Pulse Ox 01/30/20 09:12 36.9 C 67 18 110/67 96 01/30/20 08:11 36.9 C 67 18 110/67 96 01/30/20 07:25 62 01/30/20 04:55 37.0 C 71 18 108/64 95 01/30/20 00:09 36.8 C 57 L 18 104/64 96 01/30/20 00:00 61 Laboratory Results Abnormal Lab Results 01/30/20 06:38 Sodium 141 Potassium 3.7 Chloride 108 H Carbon Dioxide 26 Anion Gap 7.0 BUN 21 H Creatinine 0.99 Est Cr Clr Drug Dosing 62.1 Est GFR ( Amer) 87.2 Est GFR (Non-Af Amer) 75.2 BUN/Creatinine Ratio 21.6 H Glucose 100 H Calcium 9.0 ECG Additional Comments: Telemetry demonstrated normal sinus rhythm with rare PVCs. No recurrent ventricular arrhythmias. PG Care Time/CCT Total # of Minutes Spent Total Time Spent with Patient: Total time spent is greater than 50% in coordination of care (as documented) at patient's floor/unit and/or counseling patient: Coding Level of Care Code 65875 Subseq Hosp Care Lvl 2 Diagnoses Paroxysmal ventricular tachycardia I47.2 Cardiomyopathy I42.9 Coronary artery disease I25.10 Elevated troponin R79.89
== END 2020-01-30 10:05 | disposition home or self-care (01) | DRG 310 ==
LOC: ED 14:58 → 1E 17:52 → SUATTDRO 17:52 → 1E 18:31 → 2S 01-29 19:17